=== PATIENT | female | born 1970 | race Two or more races ===

== ENCOUNTER 2019-12-23 11:00 | Emergency (ER) | payer SELFPAY ==
[~2019-12-23] VITALS: Ht 165.1 cm; Wt 104.3 kg
[2019-12-23 11:15] VITALS: BP 148/91
== END 2019-12-23 14:50 | disposition home or self-care (01) ==
LOC: ER 11:00
DX: Z76.0 Encounter for issue of repeat prescription (principal); E11.9 Type 2 diabetes mellitus without complications; I10 Essential (primary) hypertension; E78.5 Hyperlipidemia, unspecified